=== PATIENT | male | born 1995 | race Caucasian/White ===

== ENCOUNTER 2022-01-29 02:22 | Emergency (ER) | payer SELFPAY ==
[~2022-01-29] VITALS: Ht 188 cm; Wt 86.4 kg
[2022-01-29 03:25] VITALS: BP 139/87; PULSE 84; TEMP 98.6
== END 2022-01-29 03:25 | disposition home or self-care (01) ==
LOC: COL.ER 02:22
DX: S60.512A Abrasion of left hand, initial encounter (principal); S80.212A Abrasion, left knee, initial encounter; Z23 Encounter for immunization; V29.59XA Motorcycle passenger injured in collision with other motor vehicles in traffic accident, initial encounter